=== PATIENT | female | born 1960 | race Caucasian/White ===

== ENCOUNTER 2017-08-17 07:15 | Day surgery (SDC) | payer BC ==
[2017-08-11 12:11] LABS: HEMATOCRIT 39.3 % (36.0-47.0); HEMOGLOBIN 12.8 g/dL (12.0-15.5); MEAN CORPUSCULAR HEMOGLOBIN 28.6 pg (27.0-33.4); MEAN CORPUSCULAR HGB CONC 32.6 g/dL (32.0-36.0); MEAN CORPUSCULAR VOLUME 88 fl (80-97); PLATELET COUNT 218 10^3/uL (150-450); RED BLOOD COUNT 4.48 10^6/uL (3.72-5.28); RED CELL DISTRIBUTION WIDTH 14.4 % (11.5-14.0); WHITE BLOOD COUNT 7.8 10^3/uL (4.0-10.5)
[2017-08-11 12:57] LABS: ANION GAP 15 (5-19); BLOOD UREA NITROGEN 15 mg/dL (7-20); CALCIUM 11.2 mg/dL (8.4-10.2); CARBON DIOXIDE 29 mmol/L (22-30); CHLORIDE 105 mmol/L (98-107); GLUCOSE 124 mg/dL (75-110); POTASSIUM 4.4 mmol/L (3.6-5.0); SODIUM 149.4 mmol/L (137-145)
[2017-08-11 13:27] LABS: APPEARANCE,URINE CLEAR; BILIRUBIN,URINE NEGATIVE (NEGATIVE); COLOR,URINE STRAW; GLUCOSE, URINE >=500 mg/dL (NEGATIVE); KETONES,URINE NEGATIVE (NEGATIVE); LEUKOCYTE ESTERASE,URINE NEGATIVE (NEGATIVE); NITRITE,URINE NEGATIVE (NEGATIVE); PROTEIN,URINE NEGATIVE (NEGATIVE); URINE SPECIFIC GRAVITY 1.003; UROBILINOGEN,URINE NEGATIVE mg/dL (<2.0)
--- NOTE | 2017-08-11 20:54 | EKG REPORT ---
SEVERITY:- BORDERLINE ECG - SINUS RHYTHM BORDERLINE T WAVE ABNORMALITIES : Confirmed by: Sasha Llamas 11-Aug-2017 20:53:35
[~2017-08-17 07:15] MED LIST: LACTATED RINGERS 1000 ML IV PRN; LIDOCAINE 0.5% INJ-PF (5 MG/ML) 50 ML SDV SUBCUT PRN
[2017-08-17] MEDS ORDERED: LIDOCAINE 1%/EPINEPHRINE INJ 20 ML VIAL ONE (07:52)
[2017-08-17] MEDS ORDERED: MORPHINE SULFATE 10 MG/ML INJ IV PRN (09:57)
[2017-08-17] MEDS ORDERED: MEPERIDINE HCL/PF INJ 25 MG/1 ML DISP.SYRIN IV PRN (09:57)
[2017-08-17] MEDS ORDERED: DIPHENHYDRAMINE HCL 50 MG/ML VIAL IV PRN (09:57)
[2017-08-17] MEDS ORDERED: PROMETHAZINE HCL INJ 25 MG/1 ML VIAL IV PRN (09:57)
[2017-08-17] MEDS ORDERED: FENTANYL CITRATE INJ/PF 100 MCG/2 ML AMPUL IV PRN ×3 (09:57)
[2017-08-17] MEDS ORDERED: OXYCODONE-ACETAMINOPHEN 5-325 MG TABLET PO PRN ×3 (09:57→10:29)
--- NOTE | 2017-08-17 10:02 | Brief Operative Note ---
BRIEF OPERATIVE REPORT DATE OF SURGERY: 08/17/17 TIME OF SURGERY: 09:40 PREOPERATIVE DIAGNOSIS: Thickened endometrium, cervical polyp POSTOPERATIVE DIAGNOSIS: Arcuate or septate uterus, endocervical polyp SURGEON: DEJAN ABBASI FINDINGS: 6wks AV uterus, mobile, no adnexal masses palpable. 1cm endocervical polyp removed. no endometrial polyp COMPLICATIONS: none ESTIMATED BLOOD LOSS: 5ml TISSUE REMOVED OR ALTERED: endocervical currettings, endometrial currettings TECHNICAL PROCEDURE: EUA, paracervical block, D&C, H/S
[2017-08-17] MEDS ORDERED: IBUPROFEN 800 MG TABLET PO PRN (10:28)
[2017-08-17] MEDS ORDERED: HYDROMORPHONE HCL INJ/PF 2 MG/ML AMPULE IV PRN (10:28)
[2017-08-17] MEDS ORDERED: ONDANSETRON HCL INJ/PF 4 MG/2 ML SDV IV PRN (10:30)
[2017-08-17 13:34] VITALS: BP 144/90
[2017-08-17] MEDS ORDERED: SUCCINYLCHOLINE CHLORIDE INJ 200 MG/10 ML VIAL ONE (15:27)
--- NOTE | 2017-09-05 00:12 | Operative Report ---
Operative Report DATE OF SURGERY: 08/17/17 PREOPERATIVE DIAGNOSIS: Thickened endometrium, cervical polyp POSTOPERATIVE DIAGNOSIS: Arcuate or septate uterus, endocervical polyp OPERATION: EUA, paracervical block, D&C, H/S SURGEON: DEJAN ABBASI ANESTHESIA: GA TISSUE REMOVED OR ALTERED: endocervical currettings, endometrial currettings COMPLICATIONS: None ESTIMATED BLOOD LOSS: 5ml INTRAOPERATIVE FINDINGS: 6wks AV uterus, mobile, no adnexal masses palpable. 1cm endocervical polyp removed. no endometrial polyp PROCEDURE: Anesthesia: [Keegan Juarez MD, Willie Bernstein FOREST WORKER] IVF; 325ml UOP: void prior to OR Indications: [56yo postmenopausal female recently seen in the office for cervical polyp which was removed and was benign. She was noted however, to have a thickened endometrial stripe with fluid filled endometrium on ultrasound. Reviewed with patient that need to proceed with Hysteroscopy, Dilation and currettage with possible myosure due to thickened abnormal lining in postmenopausal patient.] Procedure: The patient was taken to the Operating Room where general anesthesia was obtained without difficulty. She was prepped and draped in the normal sterile fashion in the dorsal lithotomy position. Exam under anesthesia was performed and noted above. A speculum was placed in the vagina. The anterior cervix was grasped with a single-tooth tenaculum and the uterus sounded to 7 cm after paracervical block was performed with 8 mL of 1% lidocaine with epinephrine. Sequential dilators were then used to dilate the cervix to accommodate the Myosure hysteroscope. The hysteroscope was then gently advanced into the uterine cavity in the usual fashion with visualization of the endocervical polyp as noted above. Forceps were then used to grasp the endocervical polyp. Repeat hysteroscopy noted no evidence of remaining polyp and the hysteroscopy was removed. At this time gentle curettage was performed until a gritty texture was noted of the endocervix and endometrium separately. All instruments were removed from the patient's cervix and vagina. Silver nitrate was applied to the tenaculum site for hemostasis. Sponge lap needle and instrument counts are correct 2. No perioperative antibiotics were given as is not indicated for this procedure. The patient tolerated the procedure well and was taken to the recovery area awake and in stable condition.
== END 2017-08-17 12:05 | disposition home or self-care (01) ==
LOC: OROUT 07:15
PROVIDERS: ATTEND Student in an Organized Health Care Education/Training Program
DX: N87.0 Mild cervical dysplasia (principal); N84.1 Polyp of cervix uteri; I10 Essential (primary) hypertension; E11.9 Type 2 diabetes mellitus without complications; J45.909 Unspecified asthma, uncomplicated; E66.9 Obesity, unspecified; Z79.84 Long term (current) use of oral hypoglycemic drugs; Z79.899 Other long term (current) drug therapy; Z88.0 Allergy status to penicillin; Z88.2 Allergy status to sulfonamides; Z68.36 Body mass index [BMI] 36.0-36.9, adult
CPT/HCPCS: 93005; 36415; 82962; 85027; 80048; 81001; 88305 ×2; 93010; 58558; J3490; J0330; 952

== ENCOUNTER 2018-03-30 09:54 | Emergency (ER) | payer BC ==
[2018-03-30] MEDS ORDERED: NORMAL SALINE 1000 ML 1,000 ML IV ONE ×3 (10:11→15:47)
--- NOTE | 2018-03-30 10:11 | ER Document Report ---
ED Medical Screen (RME) - General Chief Complaint: Abnormal Lab Results Stated Complaint: ABNORMAL LABS Time Seen by Provider: 03/30/18 10:10 Mode of Arrival: Ambulatory Information source: Patient Notes: This is a 57-year-old female with psychiatric disorder, hypertension, diabetes, dyslipidemia who was referred to the emergency room because of an elevated lithium level. Patient denies any tremulousness. She does states she has been slurring her speech intermittently for the past 2 weeks. This is confirmed by her . She denies any fever, chills, nausea or vomiting TRAVEL OUTSIDE OF THE [place] IN LAST 30 DAYS: No - Related Data Allergies/Adverse Reactions: Penicillins Allergy (Verified 03/30/18 09:55) Sulfa (Sulfonamide Antibiotics) Allergy (Verified 03/30/18 09:55) Past Medical History - Social History Frequency of alcohol use: None Drug Abuse: None - Past Medical History Cardiac Medical History: Reports: Hx Hypercholesterolemia, Hx Hypertension Denies: Hx Coronary Artery Disease, Hx Heart Attack Pulmonary Medical History: Reports: Hx Asthma - MILD Denies: Hx Bronchitis, Hx COPD, Hx Pneumonia Neurological Medical History: Denies: Hx Cerebrovascular Accident, Hx Seizures Endocrine Medical History: Reports: Hx Diabetes Mellitus Type 2 Renal/ Medical History: Denies: Hx Peritoneal Dialysis Musculoskeltal Medical History: Denies Hx Arthritis Psychiatric Medical History: Reports: Hx Bipolar Disorder, Hx Depression - anxiety only Past Surgical History: Reports: Hx Section, Hx Gynecologic Surgery - Immunizations Hx Diphtheria, Pertussis, Tetanus Vaccination: Yes History of Influenza Vaccine for 12/2016 - 05/2017 Season: Yes Influenza Administration Date for 12/2016 - 05/2017 Season: 12/11/17 Physical Exam - Vital signs Vitals: Temp Pulse Resp BP Pulse Ox 97.9 F 97 16 148/66 H 100 03/30/18 10:00 03/30/18 10:00 03/30/18 10:00 03/30/18 10:00 03/30/18 10:00 Course - Vital Signs Vital signs: Temp Pulse Resp BP Pulse Ox 97.9 F 97 16 148/66 H 100 03/30/18 10:00 03/30/18 10:00 03/30/18 10:00 03/30/18 10:00 03/30/18 10:00 Doctor's Discharge - Discharge Referrals: CLIFFORD GILL PA [Primary Care Provider] - Follow up as needed
[2018-03-30 10:57] LABS: HEMATOCRIT 41.1 % (36.0-47.0); HEMOGLOBIN 13.5 g/dL (12.0-15.5); MEAN CORPUSCULAR HEMOGLOBIN 29.1 pg (27.0-33.4); MEAN CORPUSCULAR HGB CONC 32.9 g/dL (32.0-36.0); MEAN CORPUSCULAR VOLUME 89 fl (80-97); PLATELET COUNT 261 10^3/uL (150-450); RED BLOOD COUNT 4.63 10^6/uL (3.72-5.28); RED CELL DISTRIBUTION WIDTH 14.6 % (11.5-14.0); WHITE BLOOD COUNT 10.3 10^3/uL (4.0-10.5)
[2018-03-30 11:19] LABS: ALANINE AMINOTRANSFERASE 37 U/L (9-52); ALBUMIN 5.3 g/dL (3.5-5.0); ALKALINE PHOSPHATASE 84 U/L (38-126); ANION GAP 12 (5-19); ASPARTATE AMINO TRANSFERASE 21 U/L (14-36); BILIRUBIN,DIRECT 0.2 mg/dL (0.0-0.4); BILIRUBIN,TOTAL 0.9 mg/dL (0.2-1.3); BLOOD UREA NITROGEN 23 mg/dL (7-20); CALCIUM 11.3 mg/dL (8.4-10.2); CARBON DIOXIDE 29 mmol/L (22-30); CHLORIDE 99 mmol/L (98-107); GLUCOSE 143 mg/dL (75-110); POTASSIUM 4.5 mmol/L (3.6-5.0); SODIUM 140.3 mmol/L (137-145); TOTAL PROTEIN 8.1 g/dL (6.3-8.2)
[2018-03-30 11:21] LABS: LITHIUM 1.8 mEq/L (0.6-1.2)
[2018-03-30 11:30] LABS: ABSOLUTE LYMPHOCYTES# (MANUAL) 1.9 10^3/uL (0.5-4.7); ABSOLUTE MONOCYTES # (MANUAL) 0.7 10^3/uL (0.1-1.4); ABSOLUTE NEUTROPHILS# (MANUAL) 7.1 10^3/uL (1.7-8.2); BAND NEUTROPHILS % (MANUAL) 1 % (3-5); BASOPHILS % (MANUAL) 0 % (0-2); EOSINOPHILS % (MANUAL) 6 % (0-6); HYPOCHROMASIA SLIGHT; LYMPHOCYTES % (MANUAL) 18 % (13-45); MONOCYTES % (MANUAL) 7 % (3-13); PLATELET COMMENT ADEQUATE; POLYCHROMASIA SLIGHT; SEGMENTED NEUTROPHILS % (MAN) 68 % (42-78); TOTAL CELLS COUNTED 100
--- NOTE | 2018-03-30 12:48 | ER Document Report ---
ED General - General Chief Complaint: Abnormal Lab Results Stated Complaint: ABNORMAL LABS Time Seen by Provider: 03/30/18 10:10 Mode of Arrival: Ambulatory Information source: Patient Notes: Patient is a 57-year-old female who presents with chief complaint of lithium level elevated. Patient reports she had routine labs drawn yesterday at her primary care providers office and was sent a message this morning to come to the ER. Patient is unsure of what the outpatient level was. Patient reports she takes lithium 300 mg capsules 2 tablets in the a.m. and 2 tablets in the p.m. Her last dose was this morning around 6 AM. Her reports that she has been agitated lately and has been having an unsteady gait with slurred speech over the last 2 weeks. They do report recent medication changes to include adding HCTZ to her lisinopril and also starting her on Geodon. Patient reports past medical history of bipolar, hypertension and diabetes. TRAVEL OUTSIDE OF THE [place] IN LAST 30 DAYS: No - Related Data Allergies/Adverse Reactions: Penicillins Allergy (Verified 03/30/18 09:55) Sulfa (Sulfonamide Antibiotics) Allergy (Verified 03/30/18 09:55) Past Medical History - General Information source: Patient - Social History Smoking Status: Never Smoker Frequency of alcohol use: None Drug Abuse: None Family History: Reviewed & Not Pertinent Patient has suicidal ideation: No Patient has homicidal ideation: No - Past Medical History Cardiac Medical History: Reports: Hx Hypercholesterolemia, Hx Hypertension Denies: Hx Coronary Artery Disease, Hx Heart Attack Pulmonary Medical History: Reports: Hx Asthma - MILD Denies: Hx Bronchitis, Hx COPD, Hx Pneumonia Neurological Medical History: Denies: Hx Cerebrovascular Accident, Hx Seizures Endocrine Medical History: Reports: Hx Diabetes Mellitus Type 2 Renal/ Medical History: Denies: Hx Peritoneal Dialysis Musculoskeletal Medical History: Denies Hx Arthritis Psychiatric Medical History: Reports: Hx Bipolar Disorder, Hx Depression - anxiety only Past Surgical History: Reports: Hx Section, Hx Gynecologic Surgery - Immunizations Hx Diphtheria, Pertussis, Tetanus Vaccination: Yes Review of Systems - Review of Systems Constitutional: Malaise EENT: No symptoms reported Cardiovascular: No symptoms reported Respiratory: No symptoms reported Gastrointestinal: No symptoms reported Genitourinary: No symptoms reported Female Genitourinary: No symptoms reported Musculoskeletal: No symptoms reported Skin: No symptoms reported Hematologic/Lymphatic: No symptoms reported Neurological/Psychological: Other - Slurred speech Physical Exam - Vital signs Vitals: Temp Pulse Resp BP Pulse Ox 97.9 F 97 16 148/66 H 100 03/30/18 10:00 03/30/18 10:03/30/18 10:00 03/30/18 10:03/30/18 10:00 - Notes Notes: PHYSICAL EXAMINATION: GENERAL: Well-appearing, well-nourished and in no acute distress. HEAD: Atraumatic, normocephalic. EYES: Pupils equal round and reactive to light, extraocular movements intact, conjunctiva are normal. ENT: Nares patent, oropharynx clear without exudates. Moist mucous membranes. NECK: Normal range of motion, supple without lymphadenopathy LUNGS: Breath sounds clear to auscultation bilaterally and equal. No wheezes rales or rhonchi. HEART: Regular rate and rhythm without murmurs ABDOMEN: Soft, nontender, nondistended abdomen. No guarding, no rebound. No masses appreciated. Female : deferred Musculoskeletal: Normal range of motion, no pitting or edema. No cyanosis. NEUROLOGICAL: Cranial nerves grossly intact. Slightly slurred speech, normal gait. Normal sensory, motor exams PSYCH: Normal mood, normal affect. SKIN: Warm, Dry, normal turgor, no rashes or lesions noted. Course - Re-evaluation Re-evalutation: 03/30/18 12:20 Spoke with poison control regarding elevated lithium level of 1.8. They recommend IV normal saline at 250 mL/h and repeat the lithium level in 4 hours. Monitor for ataxia, altered mental status and seizures. Repeat lithium level is down to 1.5. I called poison control back, they state as long as she is not having worsening symptoms she is safe to discharge home. They did recommend discussing lithium dose adjustments with her psychiatric provider. I did try calling her psychiatric provider whose office is closed. I spoke with her psychiatric provider here in house Dr. Tabares who recommends holding off on tonight's dose of lithium and reducing her dose for the next 2 days until she follows up with her primary. She states she has an appointment with her primary/mental health provider on Monday. Medications adjustments were made as outlined in patient's discharge instructions. - Vital Signs Vital signs: Temp Pulse Resp BP Pulse Ox 97.4 F 85 16 143/59 H 100 03/30/18 19:00 03/30/18 19:00 03/30/18 19:00 03/30/18 19:00 03/30/18 19:00 - Laboratory Result Diagrams: 03/30/18 10:35 03/30/18 10:35 Laboratory results interpreted by me: 03/30/18 03/30/18 03/30/18 10:35 10:35 15:03 RDW 14.6 H Band Neutrophils % 1 L BUN 23 H Est GFR (Non-Af Amer) 54 L Glucose 143 H Calcium 11.3 H Albumin 5.3 H [place] 1.8 H* 1.5 H Discharge - Discharge Clinical Impression: Elevated lithium level Condition: Stable Disposition: HOME, SELF-CARE Additional Instructions: Your initial lithium level today was 1.8. IV fluids were given and your lithium level came down to 1.5. I called and spoke with poison control who states that as long as her vital signs are stable and you are feeling okay it is safe to discharge to home. The elevation in your lithium level is possibly due to all the recent medication changes you have experienced, most likely due to adding HCTZ to your lisinopril. I was unable to get a hold of your psychiatric provider for medication recommendations for the weekend. Recommendations: Please do not take your lithium dose tonight. For the rest for the rest of the weekend please take 1 tablet in the morning and 1 tablet at bedtime. Please keep the appointment you have with your psychiatric provider for Monday. Speak with them regarding further changes to your medications. Referrals: CLIFFORD GILL PA [Primary Care Provider] - Follow up as needed
[2018-03-30 19:02] VITALS: BP 143/59
--- NOTE | 2018-03-30 20:51 | EKG REPORT ---
SEVERITY:- ABNORMAL ECG - SINUS RHYTHM FIRST DEGREE AV BLOCK BORDERLINE INFERIOR Q WAVES : Confirmed by: Sasha Llamas 30-Mar-2018 20:50:22
== END 2018-03-30 19:00 | disposition home or self-care (01) ==
LOC: ER 09:54
DX: Z51.81 Encounter for therapeutic drug level monitoring (principal); F31.9 Bipolar disorder, unspecified; Z79.899 Other long term (current) drug therapy; R47.81 Slurred speech; R53.83 Other fatigue; I10 Essential (primary) hypertension; E11.9 Type 2 diabetes mellitus without complications; J45.909 Unspecified asthma, uncomplicated; Z88.0 Allergy status to penicillin; Z88.2 Allergy status to sulfonamides
CPT/HCPCS: 93005; 99283; 96360; 96361; 36415; 80178; 85025; 80053; 93010; J7030

== ENCOUNTER 2018-05-15 08:50 | Emergency (ER) | payer BC ==
[2018-05-15] MEDS ORDERED: VANCOMYCIN HCL INJ 1000 MG VIAL IV ONE ×2 (09:02→09:24)
[2018-05-15] MEDS ORDERED: MEROPENEM 1 GM VIAL IV ONE ×2 (09:04→17:45)
[2018-05-15 09:22] LABS: ABSOLUTE BASOPHILS # (AUTO) 0.1 10^3/uL (0.0-0.2); ABSOLUTE EOSINOPHILS # (AUTO) 0.6 10^3/uL (0.0-0.6); ABSOLUTE LYMPHOCYTES (AUTO) 0.8 10^3/uL (0.5-4.7); ABSOLUTE MONOCYTES (AUTO) 0.6 10^3/uL (0.1-1.4); ABSOLUTE NEUT (AUTO) 9.2 10^3/uL (1.7-8.2); BASOPHILS % (AUTO) 0.5 % (0-2); EOSINOPHILS % (AUTO) 5.3 % (0-6); HEMATOCRIT 32.8 % (36.0-47.0); HEMOGLOBIN 10.7 g/dL (12.0-15.5); LYMPHOCYTES % (AUTO) 7.4 % (13-45); MEAN CORPUSCULAR HEMOGLOBIN 29.3 pg (27.0-33.4); MEAN CORPUSCULAR HGB CONC 32.6 g/dL (32.0-36.0); MEAN CORPUSCULAR VOLUME 90 fl (80-97); MONOCYTES % (AUTO) 4.9 % (3-13); PLATELET COUNT 227 10^3/uL (150-450); RED BLOOD COUNT 3.65 10^6/uL (3.72-5.28); RED CELL DISTRIBUTION WIDTH 14.1 % (11.5-14.0); SEGMENTED NEUTROPHILS % (AUTO) 81.9 % (42-78); TOTAL CELLS COUNTED % (AUTO) 100 %; WHITE BLOOD COUNT 11.3 10^3/uL (4.0-10.5)
[2018-05-15 09:24] LABS: VENOUS BLOOD BASE EXCESS -11.5 mmol/L; VENOUS BLOOD HCO3 16.5 mmol/L (20-32); VENOUS BLOOD PCO2 45.7 mmHg (35-63)
[2018-05-15 09:27] LABS: INTERNATIONAL RATION (INR) 1.06; PROTHROMBIN TIME 14.3 SEC (11.4-15.4)
--- NOTE | 2018-05-15 09:29 | ER Document Report ---
ED General - General Chief Complaint: Altered Mental Status Stated Complaint: POSSIBLE SEPSIS Time Seen by Provider: 05/15/18 08:56 Primary Care Provider: CLIFFORD GILL PA [Primary Care Provider] - Follow up as needed Notes: 57-year-old female with bipolar disorder, hypertension, diabetes presents to the emergency department with altered mental status and concern for sepsis. Patient was in her usual state of health a couple weeks ago and was prescribed Ambien for sleep. Over the last week she started progressively getting weaker and slightly more altered. Her states the Ambien was taken for about a week and discontinued but she has continued to deteriorate. He states that she is very sluggish and lethargic, extremely weak, and he has had to bathe her and feed her over the last couple of days. It got to the point this morning where she could not walk at all so he brought her in by ambulance. I immediately went to the room to assess the patient and she was alert and oriented x4, hypothermic at 95.9, and was following commands. Her pupils were equal round reactive to light borderline myosis. states in the past she has had a reaction to lithium due to high levels. Full sepsis workup has been initiated. Patient has a penicillin allergy so meropenem is ordered, blood cultures have already been drawn, 2 L of normal saline will be infused pending patient's weight and she lynda l receive a 30 mL/kg bolus. TRAVEL OUTSIDE OF THE [place] IN LAST 30 DAYS: No - Related Data Allergies/Adverse Reactions: Penicillins Allergy (Verified 05/15/18 09:22) Sulfa (Sulfonamide Antibiotics) Allergy (Verified 05/15/18 09:22) Past Medical History - Social History Smoking Status: Never Smoker Family History: Reviewed & Not Pertinent - Past Medical History Cardiac Medical History: Reports: Hx Hypercholesterolemia, Hx Hypertension Denies: Hx Coronary Artery Disease, Hx Heart Attack Pulmonary Medical History: Reports: Hx Asthma - MILD Denies: Hx Bronchitis, Hx COPD, Hx Pneumonia Neurological Medical History: Denies: Hx Cerebrovascular Accident, Hx Seizures Endocrine Medical History: Reports: Hx Diabetes Mellitus Type 2 Renal/ Medical History: Denies: Hx Peritoneal Dialysis Musculoskeletal Medical History: Denies Hx Arthritis Psychiatric Medical History: Reports: Hx Bipolar Disorder, Hx Depression - anxiety only Past Surgical History: Reports: Hx Section, Hx Gynecologic Surgery - Immunizations Hx Diphtheria, Pertussis, Tetanus Vaccination: Yes Physical Exam - Vital signs Vitals: Resp BP 18 114/57 L 05/15/18 09:01 05/15/18 09:01 - Notes Notes: PHYSICAL EXAMINATION: Reviewed vital signs and charting by RN GENERAL: Lethargic and weak. No acute distress. HEAD: Normocephalic, atraumatic. EYES: Pupils equal, round, and reactive to light, borderline miotic. Extraocular movements intact. ENT: Oral mucosa dry, tongue midline. NECK: Full range of motion. Supple. Trachea midline. LUNGS: Clear to auscultation bilaterally, no wheezes, rales, or rhonchi. No respiratory distress. HEART: Regular rate and rhythm. No murmur ABDOMEN: soft, non-tender. Non-distended. Bowel sounds present in all 4 quadrants. no McBurney's point tenderness, no Rob sign. EXTREMITIES: Moves all 4 extremities spontaneously. No edema, No cyanosis. NEUROLOGICAL: Alert and oriented x4, speech slightly slurred patient does follow commands in all 4 extremities. Strength 3/5 bilateral upper extremities, 2/5 bilateral lower extremities. SKIN: Warm, dry, normal turgor. No rashes or lesions noted. Course - Re-evaluation Re-evalutation: 05/15/18 09:41 Patient here for concern for sepsis. VBG showed a pH of 7.18. Core temp 95.9. Bear hugger ordered. Rest of labs still pending. 05/15/18 11:21 Labs all resulted. Patient with creatinine of 10.97, potassium 6.6, lactate 3.1. Patient in acute renal failure requiring emergent dialysis. I called hospitalist to come and assess the patient for ICU admission and emergent dialysis. He is currently reaching out to Dr. Hastings pastrycook to see if he would be available for emergent dialysis versus needing to transfer. There are currently no ICU beds so patient cannot be admitted here and is to be transferred. 05/15/18 12:31 Called [facility] and they cannot the patient for emergent dialysis and recommended a tertiary center. I called [facility] and they were willing to accept the patient but they do not have a timeline because they are full. In the interim I called [facility] and they do have bed availability. I am waiting for return call from the pastrycook and the hospitalist. Vital signs have been stable, blood pressure is holding, patient is receiving fluids. 2 A of bicarb ordered to help drive the potassium down. Repeat lactate ordered. 05/15/18 13:03 Repeat lactate 2.3. Will initiate maintenance normal saline IV fluids at 200 mL/h. 05/15/18 13:41 Talk to [facility] for transfer. Spoke with the pastrycook, Dr. knowles, who who feels patient needs to be transferred but she is unable to admit directly to the ICU which is the level of care the patient needs. The duck operator is going to talk to the MICU to see if there is any capacity there for transfer. 05/15/18 16:14 [facility] called back to attempt to do an ED to ED transfer as the MICU is at capacity with a waiting list. I spoke with an ED attending, Dr. estes, who said that this patient needed an ICU bed and he could not accept the patient. 05/15/18 16:27 I called [facility] initially and they returned phone call. I spoke with Dr. Flor Subramanian MICU attending who accepted the patient. The admitting attending will be Dr. Markham. 05/15/18 16:51 Patient received meropenem at 9 AM. I am giving patient an additional meropenem 1 g IV. Patient still has IV fluids going at 200 mL's per hour. I will get an additional BMP 05/15/18 17:[address] Hastings, pastrycook forestry extension specialist. I told him that the patient is being transferred to [place]. I told him what our current treatment plan is and he recommended giving Kayexalate 45 mg instead of the 15 that has been given. Patient does have a bed assigned at [facility]. 05/15/18 17:49 05/16/18 06:20 Final BMP showed a potassium of 5.3, no EKG changes noted, vital signs were stable during her stay. - Vital Signs Vital signs: Temp Pulse Resp BP Pulse Ox 95.9 F L 14 128/64 H 100 05/15/18 09:24 05/15/18 17:01 05/15/18 17:01 05/15/18 17:01 - Laboratory Result Diagrams: 05/15/18 09:00 05/15/18 19:16 Laboratory results interpreted by me: 05/15/18 05/15/18 05/15/18 09:00 09:00 09:00 WBC 11.3 H RBC 3.65 L Hgb 10.7 L Hct 32.8 L RDW 14.1 H Seg Neutrophils % 81.9 H Lymphocytes % 7.4 L Absolute Neutrophils 9.2 H VBG pH VBG HCO3 Sodium 132.4 L Potassium 6.6 H* Carbon Dioxide 14 L Anion Gap 20 H BUN 130 H Creatinine 10.97 H Est GFR ( Amer) 4 L Est GFR (Non-Af Amer) 4 L Glucose 144 H POC Glucose Lactic Acid 3.1 H Calcium 10.6 H AST 11 L Alkaline Phosphatase 136 H Urine Protein [place] 05/15/18 05/15/18 05/15/18 09:00 09:00 09:37 WBC RBC Hgb Hct RDW Seg Neutrophils % Lymphocytes % Absolute Neutrophils VBG pH 7.18 L* VBG HCO3 16.5 L Sodium Potassium Carbon Dioxide Anion Gap BUN Creatinine Est GFR ( Amer) Est GFR (Non-Af Amer) Glucose POC Glucose Lactic Acid Calcium AST Alkaline Phosphatase Urine Protein 30 H [place] 2.8 H* 05/15/18 05/15/18 05/15/18 10:54 12:14 15:51 WBC RBC Hgb Hct RDW Seg Neutrophils % Lymphocytes % Absolute Neutrophils VBG pH VBG HCO3 Sodium 135.6 L Potassium 6.9 H* Carbon Dioxide 19 L Anion Gap BUN 130 H Creatinine 10.37 H Est GFR ( Amer) 5 L Est GFR (Non-Af Amer) 4 L Glucose 111 H POC Glucose 139 H Lactic Acid 2.3 H Calcium AST Alkaline Phosphatase Urine Protein [place] 05/15/18 19:16 WBC RBC Hgb Hct RDW Seg Neutrophils % Lymphocytes % Absolute Neutrophils VBG pH VBG HCO3 Sodium 136.8 L Potassium 5.3 H D Carbon Dioxide 19 L Anion Gap BUN 126 H Creatinine 10.29 H Est GFR ( Amer) 5 L Est GFR (Non-Af Amer) 4 L Glucose 150 H POC Glucose Lactic Acid Calcium AST Alkaline Phosphatase Urine Protein [place] Critical Care Note - Critical Care Note Total time excluding time spent on procedures (mins): 70 Comments: Critical care time spent obtaining history from patient or surrogate, discussions with consultants, development of treatment plan with patient or surrogate, evaluation of patient's response to treatment, examination of patient, ordering and performing treatments and interventions, ordering and review of laboratory studies, re-evaluation of patient's condition, ordering and review of radiographic studies and review of old charts Discharge - Discharge Clinical Impression: SIRS (systemic inflammatory response syndrome), Hyperkalemia, Metabolic acidosis, Uremia due to inadequate renal perfusion Acute renal failure (ARF) Qualifiers: Acute renal failure type: unspecified Qualified Code(s): N17.9 - Acute kidney failure, unspecified Altered mental status Qualifiers: Altered mental status type: unspecified Qualified Code(s): R41.82 - Altered mental status, unspecified Condition: Stable Disposition: [place] Admitting Provider: Dr. Markham Referrals: CLIFFORD GILL PA [Primary Care Provider] - Follow up as needed
[2018-05-15 09:33] LABS: VENOUS BLOOD PH 7.18 (7.30-7.42)
[2018-05-15 09:50] LABS: ALANINE AMINOTRANSFERASE 27 U/L (9-52); ALBUMIN 4.9 g/dL (3.5-5.0); ALKALINE PHOSPHATASE 136 U/L (38-126); ASPARTATE AMINO TRANSFERASE 11 U/L (14-36); BILIRUBIN,DIRECT 0.2 mg/dL (0.0-0.4); BILIRUBIN,TOTAL 0.6 mg/dL (0.2-1.3); CALCIUM 10.6 mg/dL (8.4-10.2); CARBON DIOXIDE 14 mmol/L (22-30); CHLORIDE 98 mmol/L (98-107); GLUCOSE 144 mg/dL (75-110); TOTAL PROTEIN 7.1 g/dL (6.3-8.2)
[2018-05-15] MEDS: NORMAL SALINE 1000 ML 1,000 ML IV PRN ×2 (09:52→09:53)
--- NOTE | 2018-05-15 09:52 | RADIOLOGY REPORT (SQ) ---
EXAM DESCRIPTION: CHEST SINGLE VIEW COMPLETED DATE/TIME: 05/15/2018 9:29 am REASON FOR STUDY: ams COMPARISON: None. EXAM PARAMETERS: NUMBER OF VIEWS: One view. TECHNIQUE: Single frontal radiographic view of the chest acquired. RADIATION DOSE: NA LIMITATIONS: None. FINDINGS: LUNGS AND PLEURA: No opacities, masses or pneumothorax. No pleural effusion. MEDIASTINUM AND HILAR STRUCTURES: No masses. Contour normal. HEART AND VASCULAR STRUCTURES: Heart normal in size. Normal vasculature. BONES: No acute findings. HARDWARE: None in the chest. OTHER: No other significant finding. IMPRESSION: 1. NO ACUTE RADIOGRAPHIC FINDING IN THE CHEST. TECHNICAL DOCUMENTATION: JOB ID: [id number] [email or web address]- All Rights Reserved Reading location - IP/workstation name: [email or web address]
[2018-05-15 10:04] LABS: APPEARANCE,URINE CLEAR; BILIRUBIN,URINE NEGATIVE (NEGATIVE); COLOR,URINE YELLOW; GLUCOSE, URINE NEGATIVE (NEGATIVE); KETONES,URINE NEGATIVE (NEGATIVE); LEUKOCYTE ESTERASE,URINE NEGATIVE (NEGATIVE); NITRITE,URINE NEGATIVE (NEGATIVE); PROTEIN,URINE 30 mg/dL (NEGATIVE); URINE SPECIFIC GRAVITY 1.012; UROBILINOGEN,URINE NEGATIVE mg/dL (<2.0)
[2018-05-15 10:04] LABS: SODIUM 132.4 mmol/L (137-145)
[2018-05-15 10:08] LABS: ANION GAP 20 (5-19); BLOOD UREA NITROGEN 130 mg/dL (7-20)
[2018-05-15 10:09] LABS: POTASSIUM 6.6 mmol/L (3.6-5.0)
[2018-05-15] MEDS ORDERED: CALCIUM GLUCONATE 1000 MG/10 ML INJ IV ONE (10:09)
[2018-05-15] MEDS ORDERED: INSULIN REG, HUMAN 100 UNIT/ML 3 ML VIAL (PYX) IV ONE ×2 (10:10→15:35)
[2018-05-15] MEDS ORDERED: DEXTROSE 50%-WATER 25 GM/50 ML DISP.SYRIN IV ONE ×2 (10:11→15:35)
[2018-05-15] MEDS ORDERED: SODIUM POLYSTYRENE SULFONATE 15 GM/60 ML PO ONE ×4 (10:12→17:49)
--- NOTE | 2018-05-15 10:25 | EKG REPORT ---
SEVERITY:- ABNORMAL ECG - SINUS RHYTHM FIRST DEGREE AV BLOCK NONSPECIFIC INTRAVENTRICULAR CONDUCTION DELAY BASELINE ARTIFACT : Confirmed by: Shoshana Soni MD 15-May-2018 10:25:33
--- NOTE | 2018-05-15 11:21 | RADIOLOGY REPORT (SQ) ---
EXAM DESCRIPTION: CT HEAD WITHOUT COMPLETED DATE/TIME: 05/15/2018 11:00 am REASON FOR STUDY: ams COMPARISON: None. TECHNIQUE: Axial images acquired through the brain without intravenous contrast. Images reviewed wi th bone, brain and subdural windows. Images stored on PACS. All CT scanners at this facility use dose modulation, iterative reconstruction, and/or weight based d osing when appropriate to reduce radiation dose to as low as reasonably achievable (ALARA). [facility]: Dose Right [facility]: CareDose [facility]: Dose Right [facility]: Teradose 4D [facility]: Store Eyes RADIATION DOSE: CT Rad equipment meets quality standard of care and radiation dose reduction techniq ues were employed. CTDIvol: 53.2 mGy. DLP: 964 mGy-cm. mGy. LIMITATIONS: None. FINDINGS: VENTRICLES: Normal size and contour. CEREBRUM: No masses. No hemorrhage. No midline shift. No evidence for acute infarction. Normal gra y/white matter differentiation. No areas of low density in the white matter. CEREBELLUM: No masses. No hemorrhage. No alteration of density. No evidence for acute infarction. EXTRAAXIAL SPACES: No fluid collections. No masses. ORBITS AND GLOBE: No intra- or extraconal masses. Normal contour of globe without masses. CALVARIUM: No fracture. PARANASAL SINUSES: No fluid or mucosal thickening. SOFT TISSUES: No mass or hematoma. OTHER: No other significant finding. IMPRESSION: NORMAL BRAIN CT WITHOUT CONTRAST. EVIDENCE OF ACUTE STROKE: NO. COMMENT: Quality ID # [id number]: Final reports with documentation of one or more dose reduction techniques (e.g., Automated exposure control, adjustment of the mA and/or kV according to patient size, use of iterative reconstruction technique) TECHNICAL DOCUMENTATION: JOB ID: [id number] [employer] All Rights Reserved Reading location - IP/workstation name: [email or web address]
[2018-05-15] MEDS ORDERED: DEXTROSE 5%-WATER 1000 ML 1,000 ML with SODIUM BICARBONATE 100 MEQ IV PRN ×2 (12:28)
[2018-05-15] MEDS ORDERED: SODIUM BICARBONATE 8.4% INJ 50 MEQ/50 ML DISP.SYRIN IV ONE ×3 (13:22→15:36)
[2018-05-15] MEDS ORDERED: NORMAL SALINE 1000 ML 1,000 ML IV ONE (13:22)
[2018-05-15 16:25] LABS: ALANINE AMINOTRANSFERASE 22 U/L (9-52); ALBUMIN 4.3 g/dL (3.5-5.0); ALKALINE PHOSPHATASE 117 U/L (38-126); ANION GAP 16 (5-19); ASPARTATE AMINO TRANSFERASE 18 U/L (14-36); BILIRUBIN,DIRECT 0.2 mg/dL (0.0-0.4); BILIRUBIN,TOTAL 0.5 mg/dL (0.2-1.3); CALCIUM 9.6 mg/dL (8.4-10.2); CARBON DIOXIDE 19 mmol/L (22-30); CHLORIDE 101 mmol/L (98-107); GLUCOSE 111 mg/dL (75-110); SODIUM 135.6 mmol/L (137-145); TOTAL PROTEIN 6.6 g/dL (6.3-8.2)
[2018-05-15 16:47] LABS: BLOOD UREA NITROGEN 130 mg/dL (7-20)
[2018-05-15 16:48] LABS: POTASSIUM 6.9 mmol/L (3.6-5.0)
[2018-05-15] MEDS ORDERED: MEROPENEM 1 GM VIAL IV SCH (17:00)
[2018-05-15 17:07] VITALS: BP 128/64
[2018-05-15 19:44] LABS: ANION GAP 17 (5-19); CALCIUM 9.5 mg/dL (8.4-10.2); CARBON DIOXIDE 19 mmol/L (22-30); CHLORIDE 101 mmol/L (98-107); GLUCOSE 150 mg/dL (75-110); SODIUM 136.8 mmol/L (137-145)
[2018-05-15] MEDS ORDERED: ACETAMINOPHEN 325 MG TABLET PO ONE (19:48)
[2018-05-15 20:02] LABS: BLOOD UREA NITROGEN 126 mg/dL (7-20)
[2018-05-15 20:04] LABS: POTASSIUM 5.3 mmol/L (3.6-5.0)
--- NOTE | 2018-05-16 01:30 | EKG REPORT ---
SEVERITY:- ABNORMAL ECG - SINUS RHYTHM FIRST DEGREE AV BLOCK NONSPECIFIC INTRAVENTRICULAR CONDUCTION DELAY : Confirmed by: Shoshana Soni MD 16-May-2018 01:29:13
== END 2018-05-15 20:12 | disposition short-term general hospital (02) ==
LOC: ER 08:50
DX: R65.11 Systemic inflammatory response syndrome (SIRS) of non-infectious origin with acute organ dysfunction (principal); N17.9 Acute kidney failure, unspecified; E87.5 Hyperkalemia; E87.2 Acidosis; R41.82 Altered mental status, unspecified; T68.XXXA Hypothermia, initial encounter; R53.1 Weakness; I10 Essential (primary) hypertension; E11.9 Type 2 diabetes mellitus without complications; J45.909 Unspecified asthma, uncomplicated; Z88.0 Allergy status to penicillin; Z88.2 Allergy status to sulfonamides
CPT/HCPCS: 99291; 93005; 96361; 96375; 51702; 96365; 96366; 96367; 36415; 87040; 87086; 82962; 80178; 85025; 85610; 80048; 80053; 81001; 82803; 83605; 71045; 70450; 93010; J0610; J3490 ×2; J1815; J7030; J3370; J2185

== ENCOUNTER → 2018-11-01 | Outpatient (CLI) | payer BC ==
[2018-11-01 10:12] LABS: ABSOLUTE EOSINOPHILS # (AUTO) 0.3 10^3/uL (0.0-0.6); ABSOLUTE LYMPHOCYTES (AUTO) 0.9 10^3/uL (0.5-4.7); ABSOLUTE MONOCYTES (AUTO) 0.2 10^3/uL (0.1-1.4); ABSOLUTE NEUT (AUTO) 2.7 10^3/uL (1.7-8.2); BASOPHILS % (AUTO) 1.1 % (0-2); EOSINOPHILS % (AUTO) 7.6 % (0-6); HEMATOCRIT 34.5 % (36.0-47.0); HEMOGLOBIN 11.3 g/dL (12.0-15.5); LYMPHOCYTES % (AUTO) 22.4 % (13-45); MEAN CORPUSCULAR HEMOGLOBIN 27.9 pg (27.0-33.4); MEAN CORPUSCULAR HGB CONC 32.8 g/dL (32.0-36.0); MEAN CORPUSCULAR VOLUME 85 fl (80-97); MONOCYTES % (AUTO) 5.4 % (3-13); PLATELET COUNT 194 10^3/uL (150-450); RED BLOOD COUNT 4.05 10^6/uL (3.72-5.28); SEGMENTED NEUTROPHILS % (AUTO) 63.5 % (42-78); TOTAL CELLS COUNTED % (AUTO) 100 %; WHITE BLOOD COUNT 4.2 10^3/uL (4.0-10.5)
[2018-11-01 10:13] LABS: APPEARANCE,URINE SLIGHTLY-CLOUDY; BILIRUBIN,URINE NEGATIVE (NEGATIVE); COLOR,URINE STRAW; GLUCOSE, URINE NEGATIVE (NEGATIVE); KETONES,URINE NEGATIVE (NEGATIVE); LEUKOCYTE ESTERASE,URINE MODERATE (NEGATIVE); NITRITE,URINE NEGATIVE (NEGATIVE); PROTEIN,URINE NEGATIVE (NEGATIVE); URINE SPECIFIC GRAVITY 1.008; UROBILINOGEN,URINE NEGATIVE mg/dL (<2.0)
[2018-11-01 10:38] LABS: ANION GAP 11 (5-19); BLOOD UREA NITROGEN 19 mg/dL (7-20); CALCIUM 10.4 mg/dL (8.4-10.2); CARBON DIOXIDE 26 mmol/L (22-30); CHLORIDE 103 mmol/L (98-107); GLUCOSE 121 mg/dL (75-110); PHOSPHORUS 4.3 mg/dL (2.5-4.5); POTASSIUM 4.2 mmol/L (3.6-5.0)
== END ==
LOC: OD 09:22
PROVIDERS: ATTEND Internal Medicine Nephrology
DX: I12.9 Hypertensive chronic kidney disease with stage 1 through stage 4 chronic kidney disease, or unspecified chronic kidney disease (principal); N18.3 Chronic kidney disease, stage 3 (moderate); D64.9 Anemia, unspecified
CPT/HCPCS: 36415; 80069; 81001; 82043; 82306; 82570; 83970; 85025